=== PATIENT | male | born 1945 | race Caucasian/White ===

== ENCOUNTER 2019-09-04 08:35 | Outpatient (CLI) | payer MEDICARE, BC ==
[2019-09-04 09:08] LABS: Estimated GFR-MDRD - POC Greater than 90
--- NOTE | 2019-09-04 09:37 | CT ---
CT Abdomen Pelvis W WO con: 09/04/2019 12:00 AM CLINICAL HISTORY: Leakage while urinating. History of prostate cancer status post prostatectomy. TECHNIQUE: Multiple contiguous axial images were obtained and a CT of the abdomen and pelvis without and with IV contrast. Postcontrast images were obtained in the nephrographic and excretory phases. Sagittal and coronal reformats were performed. COMPARISON: None. FINDINGS: Kidneys and Urinary Tract: Right kidney and ureter: No calculi. No hydronephrosis or hydroureter. No renal mass or other lesions . No urothelial lesions: no filling defect, dilation, stricture or wall thickening. Left kidney and ureter: No calculi. No hydronephrosis or hydroureter. Subcentimeter hypodensity likel y represents a cyst. No urothelial lesions: no filling defect, dilation, stricture or wall thickening. Urinary bladder: Normal, no calculi, mass or other lesions. Remainder of Abdomen and Pelvis: Liver: Normal. Gallbladder and biliary system: Normal. No CT evident gallstones. No biliary ductal dilatation. Spleen: Normal. Pancreas: Normal. Adrenal glands: Normal. GI tract: Normal. Abdominal aorta and its major branches: Atherosclerotic calcifications No aneurysm. Peritoneum/retroperitoneum: Normal. No ascites. No adenopathy. Pelvic structures: Normal. No pelvic lymphadenopathy. Body wall and musculoskeletal: Normal. Visualized lower thorax: Normal. No pulmonary parenchymal mass or pleural effusion. IMPRESSION: Tiny subcentimeter left renal cyst; otherwise unremarkable exam.
--- NOTE | 2019-09-04 12:54 | NM ---
WHOLE BODY BONE SCAN: HISTORY: Prostate cancer RADIOPHARMACEUTICAL: 32.6 mCi technetium-99m MDP injected intravenously. COMPARISON: None FINDINGS: There is increased uptake in the shoulders, sternoclavicular joints, , and feet consistent with dege nerative changes. No other abnormal areas of tracer localization seen in the skeleton to suggest metastatic disease. Tracer excretion through the kidneys is within normal limits. IMPRESSION: No scintigraphic evidence of osseous metastatic disease.
== END 2019-09-04 08:36 | disposition home or self-care (01) ==
LOC: CT 08:35
PROVIDERS: ATTEND Urology
DX: C61 Malignant neoplasm of prostate (principal); N28.1 Cyst of kidney, acquired
CPT/HCPCS: 74178; 78306; 82565; A9503

== ENCOUNTER 2023-05-11 05:40 | Inpatient (IN) | payer MEDICARE, BC ==
[2023-05-11] MEDS ORDERED: Phenylephrine 10 MG/ML VIAL ONE (06:34)
[2023-05-11] MEDS ORDERED: Albumin 5% 500 ML ONE ×2 (06:34→09:39)
[2023-05-11] MEDS ORDERED: PHENYLEPHRINE-NS 100 MCG/ML 10 ML SYRINGE ONE ×2 (06:35→09:51)
[2023-05-11 06:43] LABS: Hemoglobin 14.8 g/dL (14.0-18.0); Mean Corpuscular HGB CONC 34.3 g/dL (32.0-36.0); Mean Corpuscular Hemoglobin 33.9 pg (27.0-31.0); Mean Corpuscular Volume 99.1 fl (78.0-98.0); Mean Platelet Volume 11.3 fL (7.4-10.4); Platelet Count 182 10x3/uL (130-400); RBC Distribution Width 12.4 % (11.5-14.5); Red Blood Cell (RBC) Count 4.36 mill/uL (4.70-6.10); White Blood Cell (WBC) Count 8.6 10x3/uL (4.8-10.8)
[2023-05-11] MEDS ORDERED: Heparin 10,000 UNITS/1 ML VIAL 30,000 UNITS in Sodium Chloride 0.9% 1,000 ML FS SCH (06:45)
[2023-05-11] MEDS ORDERED: niCARdipine 25 MG/10 ML SDV ONE (06:50)
[2023-05-11] MEDS ORDERED: Insulin Regular 300 UNITS/3 ML VIAL ONE (06:50)
[2023-05-11] MEDS ORDERED: Fentanyl 250 MCG/5 ML VIAL ONE (06:50)
[2023-05-11] MEDS ORDERED: Aminocaproic Acid 5 GM/20 ML VIAL ONE ×2 (06:50→07:31)
[2023-05-11] MEDS ORDERED: Norepinephrine 4 MG/4 ML VIAL ONE (06:50)
[2023-05-11] MEDS ORDERED: Rocuronium Bromide 50 MG/5 ML VIAL ONE (06:50)
[2023-05-11] MEDS ORDERED: Midazolam HCl 2 mg/2 ml Vial ONE (06:50)
[2023-05-11 07:06] LABS: Anion Gap 16 mmol/L (10-20); BUN (Urea Nitrogen) 21 mg/dL (8.4-25.7); Calc. Creatinine Clearance 65 mL/min (70-130); Calcium 9.5 mg/dL (7.8-10.44); Carbon Dioxide 17 mmol/L (23-31); Chloride 106 mmol/L (98-107); Estimated GFR 88; Glucose 334 mg/dL (83-110); Potassium 5.1 mmol/L (3.5-5.1); Sodium 134 mmol/L (136-145)
[2023-05-11] MEDS ORDERED: CEFAZOLIN 2 GM VIAL ONE (07:23)
[2023-05-11] MEDS ORDERED: Sodium Chloride 0.9% 0 ML ONE (07:23)
[2023-05-11] MEDS ORDERED: Heparin 5,000 UNITS/ML VIAL ONE (07:31)
[2023-05-11] MEDS ORDERED: Sodium Bicarb 50 MEQ/50 ML VIAL ONE (07:31)
[2023-05-11] MEDS ORDERED: Vancomycin 1 GM VIAL ONE (07:31)
[2023-05-11] MEDS ORDERED: Potassium Chloride 60 MEQ/30 ML VIAL ONE (07:31)
[2023-05-11] MEDS ORDERED: Papaverine 60 MG/2 ML VIAL ONE (07:31)
[2023-05-11] MEDS ORDERED: Calcium Chloride 1 GM/10 ML Abboject SYRINGE ONE (07:31)
[2023-05-11] MEDS ORDERED: Mannitol 12.5 GM/50 ML ONE (07:31)
[2023-05-11] MEDS ORDERED: Protamine Sulfate 250 MG/25 ML VIAL ONE (07:31)
[2023-05-11] MEDS ORDERED: Cardioplegic Soln 1,000 ML BAG ONE (07:31)
[2023-05-11] MEDS ORDERED: Lidocaine 1% PF 5 ML VIAL ONE (07:31)
[2023-05-11] MEDS ORDERED: Heparin 30,000 units/30 ml VIAL ONE (07:31)
[2023-05-11] MEDS ORDERED: Rocuronium Bromide 10 MG/ML (10ML VIAL) ONE (07:31)
[2023-05-11] MEDS ORDERED: Lidocaine 2% PF 100 mg/5 ml Syringe ONE (07:31)
[2023-05-11] MEDS ORDERED: Magnesium 5 GM/10 ML VIAL ONE (07:31)
[2023-05-11] MEDS ORDERED: PROPOFOL 200 MG/20 ML VIAL ONE (07:31)
[2023-05-11] MEDS ORDERED: Albumin 5% 250 ML ONE (08:22)
[2023-05-11] MEDS ORDERED: EPINEPHrine 1 MG/ML AMP ONE (09:39)
[2023-05-11] MEDS ORDERED: Nitroglycerin 50 MG/250 ML BOT 250 ML IVPB PRN (11:02)
[2023-05-11] MEDS ORDERED: Post-Op Insulin Drip Protocol IVPB ONE (11:02)
[2023-05-11] MEDS ORDERED: fentaNYL 50 mcg/mL 1 mL Vial SLOW IVP PRN (11:02)
[2023-05-11] MEDS ORDERED: NOREPINEPHRINE 8 MG/250 ML-D5W 250 ML IVPB PRN (11:02)
[2023-05-11] MEDS ORDERED: niCARdipine 25 MG in Sodium Chloride 0.9% 250 ML 250 ML IVPB PRN (11:02)
[2023-05-11] MEDS ORDERED: Guaifenesin DM 100-10/5 ML UDCUP PO PRN (11:02)
[2023-05-11] MEDS ORDERED: Mag-Al 1200 mg/1200 mg/30 ML UDCUP PO PRN (11:02)
[2023-05-11] MEDS ORDERED: Ondansetron PF 4 MG/2 ML Vial IVP PRN (11:02)
[2023-05-11] MEDS ORDERED: Hetastarch 6% 500 ML 500 ML IVPB PRN (11:02)
[2023-05-11] MEDS ORDERED: Ipratropium/Albuterol 3 ML NEB NEB PRN (11:02)
[2023-05-11] MEDS ORDERED: hydrALAZINE 20 MG/ML VIAL SLOW IVP PRN (11:02)
[2023-05-11] MEDS ORDERED: DOPamine 400 MG/D5W 250 ML 250 ML IVPB PRN (11:02)
[2023-05-11] MEDS ORDERED: Bisacodyl 10 MG SUPP PR PRN (11:02)
[2023-05-11] MEDS ORDERED: Bisacodyl 5 MG TAB PO PRN (11:02)
[2023-05-11] MEDS ORDERED: HYDROcodone/Acetaminophen 5/325 mg Tablet PO PRN (11:02)
[2023-05-11 11:24] LABS: Actual Bicarbonate (HCO3a) 20.1 mEq/L (22-28); Base Excess (BEa) -4.3 mEq/L (-2.0 to +3.0); CO2 Tension 34.3 mmHg (35.0-45.0); Calcium, Ionized (arterial) 1.14 mmol/L (1.12-1.30); Carboxyhemoglobin (COHb) 0.1 gm% (0.0-3.0); Hematocrit-ABG 34 % (42.0-52.0); Hemoglobin (Hb) 11.4 g/dL (14.0-18.0); O2 Tension (PaO2), arterial 144.4 mmHg (> 70.0); Potassium - ABG Lab 3.41 mmol/L (3.70-5.30); pH, Arterial 7.385 (7.35-7.45)
[2023-05-11 11:27] LABS: ALV-art Gradient 240.525 mmHg (0-20); Puncture Site Arterial Line
[2023-05-11] MEDS ORDERED: NOREPINEPHRINE 8 MG/250 ML-D5W 0 ML ONE (11:27)
[2023-05-11 11:34] LABS: #Eosinphils 0.2 thou/uL (0.0-0.7); #Monocytes 0.9 thou/uL (0.11-0.59); #Neutrophils 15.4 thou/uL (1.40-6.50); %Basophils 0.2 % (0.0-1.0); %Neutrophils 86.8 % (42.0-75.0); Mean Corpuscular HGB CONC 35.5 g/dL (32.0-36.0); Mean Corpuscular Hemoglobin 34.8 pg (27.0-31.0); Mean Platelet Volume 11.1 fL (7.4-10.4); Platelet Count 117 10x3/uL (130-400); RBC Distribution Width 12.2 % (11.5-14.5); Red Blood Cell (RBC) Count 3.05 mill/uL (4.70-6.10); White Blood Cell (WBC) Count 17.8 10x3/uL (4.8-10.8)
[2023-05-11 11:36] LABS: Hemoglobin 10.6 g/dL (14.0-18.0)
[2023-05-11] MEDS ORDERED: Morphine 4 MG/ML VIAL ONE (11:42)
[2023-05-11 11:47] LABS: INR-International Normal Ratio 1.5; PTT 35.8 sec (22.9-36.1); Prothrombin Time 18.5 sec (12.0-14.7)
[2023-05-11] MEDS ORDERED: Dextrose 50% Abboject 50 ML SYRINGE SLOW IVP PRN (12:00)
[2023-05-11] MEDS ORDERED: Glucagon 1 MG/ML KIT SC PRN (12:00)
[2023-05-11] MEDS ORDERED: HUMULIN R 100 UNITS in Sodium Chloride 0.9% 100 ML IVPB SCH (12:00)
[2023-05-11] MEDS ORDERED: Dextrose 5% in Water 1,000 ML IV PRN (12:00)
[2023-05-11] MEDS: Lactated Ringer's 1,000 ML IV SCH (12:01)
[2023-05-11 12:03] LABS: Anion Gap 9 mmol/L (10-20); BUN (Urea Nitrogen) 17 mg/dL (8.4-25.7); Calc. Creatinine Clearance 91 mL/min (70-130); Calcium 7.9 mg/dL (7.8-10.44); Carbon Dioxide 21 mmol/L (23-31); Chloride 117 mmol/L (98-107); Estimated GFR 95; Glucose 170 mg/dL (83-110); Potassium 3.4 mmol/L (3.5-5.1); Sodium 144 mmol/L (136-145)
[2023-05-11] MEDS: Morphine 2 MG/ML VIAL SLOW IVP PRN ×2 (12:03→12:22)
[2023-05-11] MEDS: Ketorolac Tromethamine 30 MG/ML VIAL IVP SCH ×3 (12:17→23:25)
[2023-05-11] MEDS: Potassium Chloride 20 MEQ/100 ML PREMIX BAG IVPB PRN ×2 (12:22→19:12)
[2023-05-11] MEDS: fentaNYL 50 mcg/mL 1 mL Vial SLOW IVP PRN ×3 (12:37→19:17)
[2023-05-11 13:21] LABS: Analyzer IN Cardio OR; Base Excess (BEa) -5.4 mEq/L (-2.0 to +3.0); CO2 Tension 34.1 mmHg (35.0-45.0); Calcium, Ionized (arterial) 1.15 mmol/L (1.12-1.30); Carboxyhemoglobin (COHb) 0.8 gm% (0.0-3.0); Hematocrit-ABG 41 % (42.0-52.0); O2 Tension (PaO2), arterial 468.3 mmHg (> 70.0); pH, Arterial 7.365 (7.35-7.45)
[2023-05-11 13:22] LABS: Actual Bicarbonate (HCO3a) 21.3 mEq/L (22-28); Analyzer IN Cardio OR; Base Excess (BEa) -3.3 mEq/L (-2.0 to +3.0); CO2 Tension 36.3 mmHg (35.0-45.0); Calcium, Ionized (arterial) 0.97 mmol/L (1.12-1.30); Carboxyhemoglobin (COHb) 0.3 gm% (0.0-3.0); Hematocrit-ABG 26 % (42.0-52.0); Hemoglobin (Hb) 8.9 g/dL (14.0-18.0); O2 Tension (PaO2), arterial 400.7 mmHg (> 70.0); Potassium - ABG Lab 4.22 mmol/L (3.70-5.30); pH, Arterial 7.387 (7.35-7.45)
[2023-05-11 13:22] LABS: Analyzer IN Cardio OR; Base Excess (BEa) -8.8 mEq/L (-2.0 to +3.0); CO2 Tension 36.5 mmHg (35.0-45.0); Calcium, Ionized (arterial) 1.11 mmol/L (1.12-1.30); Carboxyhemoglobin (COHb) 0.5 gm% (0.0-3.0); Hematocrit-ABG 37 % (42.0-52.0); Hemoglobin (Hb) 12.7 g/dL (14.0-18.0); O2 Tension (PaO2), arterial 490.1 mmHg (> 70.0); pH, Arterial 7.287 (7.35-7.45)
[2023-05-11 13:22] LABS: Actual Bicarbonate (HCO3a) 20.5 mEq/L (22-28); Analyzer IN Cardio OR; Base Excess (BEa) -5.5 mEq/L (-2.0 to +3.0); Calcium, Ionized (arterial) 1.46 mmol/L (1.12-1.30); Carboxyhemoglobin (COHb) 0.1 gm% (0.0-3.0); Hematocrit-ABG 28 % (42.0-52.0); Hemoglobin (Hb) 9.5 g/dL (14.0-18.0); O2 Tension (PaO2), arterial 409.2 mmHg (> 70.0); Potassium - ABG Lab 4.04 mmol/L (3.70-5.30); pH, Arterial 7.306 (7.35-7.45)
[2023-05-11 13:24] LABS: Actual Bicarbonate (HCO3a) 22.5 mEq/L (22-28); Analyzer IN Cardio OR; Base Excess (BEa) -1.6 mEq/L (-2.0 to +3.0); CO2 Tension 35.2 mmHg (35.0-45.0); Calcium, Ionized (arterial) 1.15 mmol/L (1.12-1.30); Carboxyhemoglobin (COHb) 0.1 gm% (0.0-3.0); Hematocrit-ABG 27 % (42.0-52.0); Hemoglobin (Hb) 9.1 g/dL (14.0-18.0); O2 Tension (PaO2), arterial 345.6 mmHg (> 70.0); Potassium - ABG Lab 3.59 mmol/L (3.70-5.30); pH, Arterial 7.423 (7.35-7.45)
[2023-05-11 13:25] LABS: Puncture Site Arterial Line
[2023-05-11 13:25] LABS: Actual Bicarbonate (HCO3a) 20.2 mEq/L (22-28); Analyzer IN Cardio OR; Base Excess (BEa) -3.6 mEq/L (-2.0 to +3.0); CO2 Tension 32.1 mmHg (35.0-45.0); Carboxyhemoglobin (COHb) 0.4 gm% (0.0-3.0); Hematocrit-ABG 34 % (42.0-52.0); Hemoglobin (Hb) 11.4 g/dL (14.0-18.0); O2 Tension (PaO2), arterial 297.6 mmHg (> 70.0); Potassium - ABG Lab 3.18 mmol/L (3.70-5.30); pH, Arterial 7.416 (7.35-7.45)
[2023-05-11 13:26] LABS: Puncture Site Arterial Line
[2023-05-11 13:26] LABS: Puncture Site Arterial Line
[2023-05-11 13:26] LABS: Puncture Site Arterial Line
[2023-05-11 13:27] LABS: Puncture Site Arterial Line
[2023-05-11 13:27] LABS: Puncture Site Arterial Line
[2023-05-11 15:15] LABS: Actual Bicarbonate (HCO3a) 20.7 mEq/L (22-28); Base Excess (BEa) -3.9 mEq/L (-2.0 to +3.0); CO2 Tension 35.9 mmHg (35.0-45.0); Calcium, Ionized (arterial) 1.15 mmol/L (1.12-1.30); Carboxyhemoglobin (COHb) 0.6 gm% (0.0-3.0); Hematocrit-ABG 36 % (42.0-52.0); Hemoglobin (Hb) 12.3 g/dL (14.0-18.0); O2 Tension (PaO2), arterial 116.2 mmHg (> 70.0); Potassium - ABG Lab 3.85 mmol/L (3.70-5.30); pH, Arterial 7.378 (7.35-7.45)
[2023-05-11 15:16] LABS: ALV-art Gradient 124.125 mmHg (0-20); Puncture Site Arterial Line
[2023-05-11] MEDS: CEFAZOLIN 2 GM in Sodium Chloride 0.9% 100 ML IVPB SCH ×2 (15:35→23:25)
[2023-05-11 17:00] LABS: Hemoglobin 11.4 g/dL (14.0-18.0)
[2023-05-11] MEDS ORDERED: Famotidine/PF 20 mg/2ml Vial SLOW IVP SCH (21:00)
[2023-05-12] MEDS: fentaNYL 50 mcg/mL 1 mL Vial SLOW IVP PRN (01:28)
[2023-05-12] MEDS: HYDROcodone/Acetaminophen 5/325 mg Tablet PO PRN (01:30)
[2023-05-12] MEDS: Lactated Ringer's 1,000 ML IV SCH (02:22)
[2023-05-12 05:18] LABS: #Basophils 0.1 thou/uL (0.0-0.2); #Monocytes 1.3 thou/uL (0.11-0.59); #Neutrophils 12.8 thou/uL (1.40-6.50); %Basophils 0.3 % (0.0-1.0); %Eosinophils 0.1 % (0.0-10.0); %Lymphocytes 3.7 % (21.0-51.0); %Monocytes 8.8 % (0.0-10.0); %Neutrophils 86.6 % (42.0-75.0); Hemoglobin 10.4 g/dL (14.0-18.0); Mean Corpuscular HGB CONC 34.6 g/dL (32.0-36.0); Mean Corpuscular Hemoglobin 34.7 pg (27.0-31.0); Mean Corpuscular Volume 100.3 fl (78.0-98.0); RBC Distribution Width 12.9 % (11.5-14.5); White Blood Cell (WBC) Count 14.7 10x3/uL (4.8-10.8)
[2023-05-12 05:24] LABS: Platelet Count 118 10x3/uL (130-400)
[2023-05-12 05:41] LABS: Anion Gap 10 mmol/L (10-20); BUN (Urea Nitrogen) 21 mg/dL (8.4-25.7); Calc. Creatinine Clearance 93 mL/min (70-130); Calcium 7.9 mg/dL (7.8-10.44); Carbon Dioxide 22 mmol/L (23-31); Chloride 111 mmol/L (98-107); Estimated GFR 96; Glucose 145 mg/dL (83-110); Potassium 3.6 mmol/L (3.5-5.1); Sodium 139 mmol/L (136-145)
[2023-05-12] MEDS ORDERED: Furosemide 20 MG/2 ML VIAL SLOW IVP SCH (06:30)
[2023-05-12] MEDS: Ketorolac Tromethamine 30 MG/ML VIAL IVP SCH ×3 (06:46→17:48)
[2023-05-12] MEDS: Potassium Chloride 20 MEQ/100 ML PREMIX BAG IVPB PRN (06:46)
[2023-05-12] MEDS: CEFAZOLIN 2 GM in Sodium Chloride 0.9% 100 ML IVPB SCH (06:46)
[2023-05-12] MEDS: Levothyroxine Sodium 100 MCG TAB PO SCH (06:48)
[2023-05-12] MEDS: Insulin Regular 300 UNITS/3 ML VIAL SC PRN ×4 (09:12→21:12)
[2023-05-12] MEDS: Famotidine 20 MG TAB PO SCH ×2 (09:12→21:11)
[2023-05-12] MEDS: Polyethylene Glycol 3350 17 GM Packet PO SCH (09:13)
[2023-05-12] MEDS: Atorvastatin Calcium 40 MG TAB PO SCH (09:13)
[2023-05-12] MEDS: Aspirin Chewable 81 MG TAB PO SCH (09:13)
[2023-05-12] MEDS ORDERED: Insulin Glargine 30 UNITS/0.3 ML VIAL SC PRN (11:46)
[2023-05-12] MEDS: Acetaminophen 325 MG TAB PO PRN (17:52)
[2023-05-13] MEDS: Ketorolac Tromethamine 30 MG/ML VIAL IVP SCH ×5 (00:18→23:33)
[2023-05-13] MEDS: Insulin Regular 300 UNITS/3 ML VIAL SC PRN ×5 (00:22→23:37)
[2023-05-13] MEDS ORDERED: Sodium Chloride 0.9% 500 ML IVPB PRN (03:33)
[2023-05-13] MEDS ORDERED: Diltiazem HCl 125 MG, Admixture Fee 1 EACH in Sodium Chloride 0.9% 100 ML IVPB SCH (03:45)
[2023-05-13 04:07] LABS: #Basophils 0.1 thou/uL (0.0-0.2); #Eosinphils 0.1 thou/uL (0.0-0.7); #Monocytes 1.4 thou/uL (0.11-0.59); #Neutrophils 11.5 thou/uL (1.40-6.50); %Basophils 0.4 % (0.0-1.0); %Eosinophils 0.5 % (0.0-10.0); %Lymphocytes 8.4 % (21.0-51.0); %Monocytes 9.5 % (0.0-10.0); %Neutrophils 80.6 % (42.0-75.0); Mean Corpuscular HGB CONC 34.5 g/dL (32.0-36.0); Mean Corpuscular Hemoglobin 34.3 pg (27.0-31.0); Mean Corpuscular Volume 99.4 fl (78.0-98.0); Mean Platelet Volume 11.4 fL (7.4-10.4); RBC Distribution Width 12.8 % (11.5-14.5); Red Blood Cell (RBC) Count 3.21 mill/uL (4.70-6.10); White Blood Cell (WBC) Count 14.2 10x3/uL (4.8-10.8)
[2023-05-13 04:08] LABS: Platelet Count 120 10x3/uL (130-400)
[2023-05-13 04:25] LABS: Anion Gap 12 mmol/L (10-20); BUN (Urea Nitrogen) 21 mg/dL (8.4-25.7); Calc. Creatinine Clearance 0 mL/min (70-130); Calcium 8.5 mg/dL (7.8-10.44); Carbon Dioxide 21 mmol/L (23-31); Chloride 108 mmol/L (98-107); Estimated GFR 98; Glucose 163 mg/dL (83-110); Potassium 4.1 mmol/L (3.5-5.1); Sodium 137 mmol/L (136-145)
[2023-05-13] MEDS: Levothyroxine Sodium 100 MCG TAB PO SCH (05:19)
[2023-05-13 05:30] VITALS: BMI 25.9
[2023-05-13] MEDS: Atorvastatin Calcium 40 MG TAB PO SCH (08:38)
[2023-05-13] MEDS: Famotidine 20 MG TAB PO SCH ×2 (08:38→20:56)
[2023-05-13] MEDS: Aspirin Chewable 81 MG TAB PO SCH (08:38)
[2023-05-13] MEDS: Insulin Glargine 30 UNITS/0.3 ML VIAL SC SCH ×2 (08:41→20:56)
[2023-05-13] MEDS: Polyethylene Glycol 3350 17 GM Packet PO SCH (08:41)
[2023-05-13] MEDS ORDERED: Metoprolol Tartrate 25 MG TAB PO SCH (09:00)
[2023-05-13] MEDS: HYDROcodone/Acetaminophen 5/325 mg Tablet PO PRN (19:30)
[2023-05-13] MEDS: Metoprolol Tartrate 25 MG TAB PO SCH (20:56)
[2023-05-14 03:57] LABS: #Eosinphils 0.2 thou/uL (0.0-0.7); #Neutrophils 6.5 thou/uL (1.40-6.50); %Basophils 0.4 % (0.0-1.0); %Eosinophils 2.5 % (0.0-10.0); %Lymphocytes 12.8 % (21.0-51.0); %Monocytes 11.3 % (0.0-10.0); %Neutrophils 72.7 % (42.0-75.0); Mean Corpuscular HGB CONC 34.2 g/dL (32.0-36.0); Mean Corpuscular Hemoglobin 33.4 pg (27.0-31.0); Mean Corpuscular Volume 97.7 fl (78.0-98.0); Mean Platelet Volume 11.4 fL (7.4-10.4); Platelet Count 124 10x3/uL (130-400); RBC Distribution Width 12.6 % (11.5-14.5); Red Blood Cell (RBC) Count 2.99 mill/uL (4.70-6.10); White Blood Cell (WBC) Count 8.9 10x3/uL (4.8-10.8)
[2023-05-14] MEDS: Insulin Regular 300 UNITS/3 ML VIAL SC PRN ×3 (04:13→17:24)
[2023-05-14 04:27] LABS: Anion Gap 9 mmol/L (10-20); BUN (Urea Nitrogen) 24 mg/dL (8.4-25.7); Calc. Creatinine Clearance 94 mL/min (70-130); Calcium 8.5 mg/dL (7.8-10.44); Carbon Dioxide 27 mmol/L (23-31); Chloride 107 mmol/L (98-107); Estimated GFR 97; Glucose 140 mg/dL (83-110); Potassium 3.7 mmol/L (3.5-5.1); Sodium 139 mmol/L (136-145)
[2023-05-14] MEDS: Ketorolac Tromethamine 30 MG/ML VIAL IVP SCH (05:19)
[2023-05-14] MEDS: Levothyroxine Sodium 100 MCG TAB PO SCH (05:20)
[2023-05-14] MEDS: Potassium Chloride 20 MEQ/100 ML PREMIX BAG IVPB PRN (07:05)
[2023-05-14] MEDS: Metoprolol Tartrate 25 MG TAB PO SCH ×2 (07:50→21:51)
[2023-05-14] MEDS: Aspirin Chewable 81 MG TAB PO SCH (07:50)
[2023-05-14] MEDS: Atorvastatin Calcium 40 MG TAB PO SCH (07:51)
[2023-05-14] MEDS: Losartan 25 MG TAB PO SCH (07:51)
[2023-05-14] MEDS: Polyethylene Glycol 3350 17 GM Packet PO SCH (07:53)
[2023-05-14] MEDS: Famotidine 20 MG TAB PO SCH ×2 (07:56→21:50)
[2023-05-14] MEDS ORDERED: Furosemide 20 MG TAB PO SCH ×2 (10:00→10:45)
[2023-05-14] MEDS ORDERED: traMADol HCl 50 MG TAB PO PRN (10:24)
[2023-05-14] MEDS ORDERED: Nitroglycerin 0.4 MG TAB (25 Tab Bottle) SL PRN (10:24)
[2023-05-14] MEDS ORDERED: Artificial Tear Sol 15 ML BOT EA EYE PRN (10:24)
[2023-05-14] MEDS ORDERED: Mineral Oil ENEMA PR PRN (10:24)
[2023-05-14] MEDS ORDERED: Amiodarone 150 MG, Admixture Fee 1 EACH in Dextrose 5% in Water 100 ML IVPB SCH (10:30)
[2023-05-14] MEDS: Insulin Glargine 30 UNITS/0.3 ML VIAL SC SCH ×2 (10:31→21:53)
[2023-05-14] MEDS ORDERED: Potassium Chloride 10 MEQ TAB PO SCH (10:45)
[2023-05-14] MEDS: Amiodarone 450 MG, Admixture Fee 1 EACH in Dextrose 5% in Water 250 ML IVPB SCH ×3 (10:57→21:58)
[2023-05-15 04:32] LABS: #Eosinphils 0.2 thou/uL (0.0-0.7); #Neutrophils 7.3 thou/uL (1.40-6.50); %Basophils 0.3 % (0.0-1.0); %Eosinophils 2.1 % (0.0-10.0); %Lymphocytes 12.9 % (21.0-51.0); %Monocytes 10.5 % (0.0-10.0); %Neutrophils 73.8 % (42.0-75.0); Hemoglobin 11.6 g/dL (14.0-18.0); Mean Corpuscular HGB CONC 34.6 g/dL (32.0-36.0); Mean Corpuscular Volume 98.2 fl (78.0-98.0); Mean Platelet Volume 11.3 fL (7.4-10.4); Platelet Count 153 10x3/uL (130-400); RBC Distribution Width 12.4 % (11.5-14.5); Red Blood Cell (RBC) Count 3.41 mill/uL (4.70-6.10); White Blood Cell (WBC) Count 9.9 10x3/uL (4.8-10.8)
[2023-05-15 04:55] LABS: Anion Gap 12 mmol/L (10-20); BUN (Urea Nitrogen) 16 mg/dL (8.4-25.7); Calc. Creatinine Clearance 84 mL/min (70-130); Calcium 8.7 mg/dL (7.8-10.44); Carbon Dioxide 25 mmol/L (23-31); Chloride 101 mmol/L (98-107); Estimated GFR 94; Glucose 282 mg/dL (83-110); Potassium 4.4 mmol/L (3.5-5.1); Sodium 134 mmol/L (136-145)
[2023-05-15] MEDS: Levothyroxine Sodium 100 MCG TAB PO SCH (06:54)
[2023-05-15] MEDS: Insulin Regular 300 UNITS/3 ML VIAL SC PRN ×3 (07:29→16:32)
[2023-05-15] MEDS: Insulin Glargine 30 UNITS/0.3 ML VIAL SC SCH ×2 (09:47→21:32)
[2023-05-15] MEDS: Polyethylene Glycol 3350 17 GM Packet PO SCH (09:47)
[2023-05-15] MEDS: Famotidine 20 MG TAB PO SCH ×2 (09:47→21:28)
[2023-05-15] MEDS: Aspirin Chewable 81 MG TAB PO SCH (09:48)
[2023-05-15] MEDS: Metoprolol Tartrate 25 MG TAB PO SCH ×2 (09:48→21:27)
[2023-05-15] MEDS: Potassium Chloride 10 MEQ TAB PO SCH (09:49)
[2023-05-15] MEDS: Losartan 25 MG TAB PO SCH (09:49)
[2023-05-15] MEDS: Atorvastatin Calcium 40 MG TAB PO SCH (09:49)
[2023-05-15] MEDS: Furosemide 20 MG TAB PO SCH (09:50)
[2023-05-15] MEDS ORDERED: Insulin Glargine 30 UNITS/0.3 ML VIAL SC SCH ×2 (10:23→10:30)
[2023-05-15] MEDS ORDERED: Losartan 25 MG TAB PO SCH (10:30)
[2023-05-15] MEDS: Acetaminophen 325 MG TAB PO PRN (21:28)
[2023-05-15] MEDS: Amiodarone 200 MG TAB PO SCH (21:28)
[2023-05-16] MEDS: Levothyroxine Sodium 100 MCG TAB PO SCH (05:59)
[2023-05-16] MEDS: Amiodarone 450 MG, Admixture Fee 1 EACH in Dextrose 5% in Water 250 ML IVPB SCH (07:07)
[2023-05-16 08:26] VITALS: TEMP 97.4
[2023-05-16] MEDS ORDERED: Losartan 25 MG TAB PO SCH (09:00)
[2023-05-16 09:09] VITALS: BP 137/69
[2023-05-16] MEDS: Metoprolol Tartrate 25 MG TAB PO SCH (10:23)
[2023-05-16] MEDS: Aspirin Chewable 81 MG TAB PO SCH (10:26)
[2023-05-16] MEDS: Atorvastatin Calcium 40 MG TAB PO SCH (10:26)
[2023-05-16] MEDS: Amiodarone 200 MG TAB PO SCH (10:27)
[2023-05-16] MEDS: Famotidine 20 MG TAB PO SCH (10:28)
[2023-05-16] MEDS: Furosemide 20 MG TAB PO SCH (10:28)
[2023-05-16] MEDS: Potassium Chloride 10 MEQ TAB PO SCH (10:29)
[2023-05-16] MEDS: Polyethylene Glycol 3350 17 GM Packet PO SCH (10:30)
[2023-05-16] MEDS: Insulin Glargine 30 UNITS/0.3 ML VIAL SC SCH (11:27)
[2023-05-16] MEDS ORDERED: Insulin Glargine 30 UNITS/0.3 ML VIAL SC SCH (21:00)
[2023-05-17] MEDS ORDERED: Insulin Glargine 30 UNITS/0.3 ML VIAL SC SCH (09:00)
== END 2023-05-16 13:15 | disposition home or self-care (01) | DRG 236 ==
LOC: SURG A 05:40 → CCU 10:04 → 2NO 05-14 19:02
PROVIDERS: ADMIT Thoracic Surgery (Cardiothoracic Vascular Surgery); ATTEND Thoracic Surgery (Cardiothoracic Vascular Surgery)
PROC: 02100Z9 Bypass Coronary Artery, One Artery from Left Internal Mammary, Open Approach (ICD-10-PCS; principal; 2023-05-11)
PROC: 021109W Bypass Coronary Artery, Two Arteries from Aorta with Autologous Venous Tissue, Open Approach (ICD-10-PCS; 2023-05-11)
PROC: 06BQ0ZZ Excision of Left Saphenous Vein, Open Approach (ICD-10-PCS; 2023-05-11)
PROC: 06BP3ZZ Excision of Right Saphenous Vein, Percutaneous Approach (ICD-10-PCS; 2023-05-11)
PROC: 02L70CK Occlusion of Left Atrial Appendage with Extraluminal Device, Open Approach (ICD-10-PCS; 2023-05-11)
PROC: 4A133R1 Monitoring of Arterial Saturation, Peripheral, Percutaneous Approach (ICD-10-PCS; 2023-05-11)
PROC: 30233J1 Transfusion of Nonautologous Serum Albumin into Peripheral Vein, Percutaneous Approach (ICD-10-PCS; 2023-05-11)
DX: I25.10 Atherosclerotic heart disease of native coronary artery without angina pectoris (principal); E11.9 Type 2 diabetes mellitus without complications; I10 Essential (primary) hypertension; K21.9 Gastro-esophageal reflux disease without esophagitis; E78.2 Mixed hyperlipidemia; I48.91 Unspecified atrial fibrillation; Z98.890 Other specified postprocedural states; Z95.5 Presence of coronary angioplasty implant and graft; Z90.49 Acquired absence of other specified parts of digestive tract; Z79.82 Long term (current) use of aspirin; Z79.4 Long term (current) use of insulin; Z79.899 Other long term (current) drug therapy
CPT/HCPCS: 36415; 36416; 36430; 71045; 80048; 82805; 85025; 85027; 85610; 85730; 86850; 86900; 86901; 93005; 93010; 93798; 94002; 94150; 94640; 97139; C1751; J0171; J0282; J1642; J1644; J1650; J1815; J1885; J1940; J2001; J2150; J2250; J2272; J2370; J2440; J2704; J2720; J3010; J3370; J3475; J3480; J3490; J7070; J7120; J7620; P9045; S0017; S0028